=== PATIENT | male | born 1955 | race Caucasian/White ===

== ENCOUNTER 2024-12-30 09:43 | Emergency (ER) | payer MEDICARE, SELFPAY ==
[2024-12-30 09:46] VITALS: BP 152/105
--- NOTE | 2024-12-30 11:25 | EDRN ---
Dr. Barger in to see pt at this time.
--- NOTE | 2024-12-30 11:31 | ED.GENMED ---
History of Present Illness
General
Chief Complaint: Musculo-Skeletal Complaint
Source: patient
Exam Limitations: none
Time Seen by Provider: 12/30/24 11:15
Nursing documentation reviewed up to this point in time: agreed with
History of Present Illness
History of Present Illness:
Patient presents to ED secondary to worsening low back pain over the past 1 week. Denies direct trauma. Denies recent change in activities. Denies urinary or bowel incontinence. Denies weakness. Patient reports difficulty with ambulating,
secondary to pain. Patient states that he has had intermittent back pain in the past, but never this severe. Patient recently moved back [place] from [facility].
Review of Systems
Review of Systems
Allergies reviewed?: Yes
All Other Systems: ROS reviewed and negative except as documented in HPI and ROS
Constitutional: Reports no symptoms; Denies fever
Respiratory: Reports no symptoms
Cardiac: Reports no symptoms
ABD/GI: Reports no symptoms; Denies nausea or vomiting
: Reports no symptoms; Denies incontinence
Musculoskeletal: Reports back pain
Skin: Reports no symptoms
Neurological: Denies weakness
Phy Exam
Physical Exam
Physical Exam:
Physical Exam
General: mild painful distress, not acutely ill. afebrile
Head: nc/at. eomi
Neck: supple. no meningeal signs.
Abdomen: normal bowel sounds. not tender.
Back: no midline tenderness to palpation. mild left lower back tenderness to palpation at L5-S1 with positive straight leg raise test
Neuro: alert and oriented x 3. no focal neurological deficits
Skin: no rash
Psychiatric: well kept. interactive and cooperative
Extremities: no edema. no calf tenderness.
Course
Orders/Labs/Results
Orders:
Orders
12/30/24 11:30
Dexamethasone Sod Phosphate [Decadron] 10 mg IV NOW STA
Ketorolac [Toradol] 15 mg IV NOW STA
Oxycodone/Acetaminophen [Percocet 5/325] 1 tablet PO NOW STA
diazePAM [Valium Injection] 2 mg IV NOW STA
CR Lumbar Spine Comp Min 4 Vw* Urgent
Comment:
Reason For Exam: low back pain
Vital Signs
Initial and Last Documented VS:
Initial Vital Signs
Temp Pulse Resp BP Pulse Ox
98.2 F 99 19 152/105 98
12/30/24 09:46 12/30/24 09:46 12/30/24 09:46 12/30/24 09:46 12/30/24 09:46
Last Documented Vital Signs
Temp Pulse Resp BP Pulse Ox
98.2 F 92 16 115/84 98
12/30/24 09:46 12/30/24 13:05 12/30/24 13:05 12/30/24 13:05 12/30/24 13:05
MDM/Problems Addressed
MDM/Problems Addressed:
Patient reports moderate improvement in symptoms after treatment. Patient otherwise remains afebrile, hemodynamically stable, and neurologically intact. X-ray findings discussed with patient, including left renal cyst, which patient was aware of.
However, patient does state that he has not seen any kidney doctor for a long period of time. As such, as patient recently moved back to [facility] [place], patient will be referred to [facility] residency clinic for continued
evaluation as an outpatient, including potential MRI as outpatient, if symptoms persist. Patient without any symptoms concerning for cauda equina syndrome at this time. Patient provided with return precautions, i.e. fever/worsening
pain/weakness/incontinence. Patient expresses understanding at time of discharge.
*Pulse Oximetry
SaO2: 98
Oxygen Mode of Delivery: Room air
Patient hypoxic: no
*Critical Care Note
Total Time (30-74mins, 75-104mins- exclusive of procedures): Not Applicable
ED Attending Note
-
Portions of this chart may have been created with voice recognition software.� Occasional wrong word or��sound alike� substitutions may have occurred due to the inherent limitations of voice recognition software.
Discharge Plan
Departure
Patient Disposition: Home (Routine Discharge)
Date of Disposition: 12/30/24
Time of Disposition: 13:15
Patient with high blood pressure during this ER visit?: Yes
Condition: Good
Discharge Problem:
Back pain, Renal cyst
Instructions: Back Pain
Prescriptions:
New
methylprednisolone [Medrol (Robby)] 4 mg tablets,dose pack
4 mg PO DAILY Qty: 21 0RF
Rx Instructions:
As directed
naproxen 500 mg tablet
500 mg PO BID PRN (Reason: Pain) Qty: 20 0RF
Referrals:
[facility] [Outside]
UNKNOWN - PT DOES,NOT KNOW [Family Provider]
Activity Restrictions/Additional Instructions:
As discussed, please follow-up with referred [facility] residency clinic for continual evaluation and treatment. Please consider return to ED with worsening symptoms, i.e. fever/worsening pain/urinary or bowel incontinence/weakness. Your
prescriptions have been sent electronically to [facility] pharmacy in [place].
Interventions
Interventions:
*Risk Screen - Suicide Last Done: 12/30/24 09:46
*General Assessment Last Done: 12/30/24 09:46
*Neglect/Abuse Screening Last Done: 12/30/24 09:46
*ED- Fall Risk Assessment Last Done: 12/30/24 09:46
*ED COVID-19 Vaccine History Last Done: 12/30/24 09:46
*Nursing Disposition Last Done: 12/30/24 13:35
ED-Musculoskeletal Assessment Last Done: 12/30/24 11:48
Discharge Date and Time
Discharge Date/Time: 12/30/24 13:35
Print Language: ARMENIAN
[2024-12-30 11:46] VITALS: BMI 24.7
[2024-12-30] MEDS: VALIUM INJECTION 2 MG IV (11:55)
[2024-12-30] MEDS: TORADOL 15 MG IV (11:56)
[2024-12-30] MEDS: DECADRON 10 MG IV (11:57)
[2024-12-30] MEDS: PERCOCET 5/325 1 TABLET PO (11:57)
[2024-12-30 12:05] VITALS: BP 136/86
[2024-12-30 13:05] VITALS: BP 115/84
--- NOTE | 2024-12-30 13:06 | EDRN ---
Dr. Barger in room w/ pt at this time
== END 2024-12-30 13:35 | disposition home or self-care (01) ==
LOC: EMR 09:43
PROVIDERS: EMERGENCY PHYSICIAN Emergency Medicine
DX: M54.50 Low back pain, unspecified (principal); N28.1 Cyst of kidney, acquired; R03.0 Elevated blood-pressure reading, without diagnosis of hypertension
CPT/HCPCS: 99284; 96374; 96375 ×2; 72110

== ENCOUNTER 2025-01-01 15:59 | Inpatient (IN) | payer OTHER, SELFPAY ==
[2025-01-01] VITALS (7 sets, daily range): BP systolic 117–157; BP diastolic 72–99; BMI 24.2; BMI 25.0
--- NOTE | 2025-01-01 12:21 | ED.GENMED ---
History of Present Illness
General
Chief Complaint: Swelling
Time Seen by Provider: 01/01/25 12:10
Nursing documentation reviewed up to this point in time: agreed with
History of Present Illness
History of Present Illness:
69-year-old male presents to the ER for evaluation of bilateral lower extremity swelling. Patient reports that he was seen in our ER earlier this weekend for back pain. He had some left lower extremity swelling at that time. He was initiated on
steroids and NSAIDs for treatment of his back pain and states that his back pain has improved significantly but he has severe swelling to both of his legs now. He reports feeling of tension in both of his legs. He denies paresthesias. He denies
chest pain or shortness of breath. He does have a prior history of DVT many years ago and states that he takes daily aspirin. He has been eating and drinking without difficulty. He denies any urinary discomforts or change in urine output. He
denies fevers or chills.
Review of Systems
Review of Systems
Allergies reviewed?: Yes
Phy Exam
Physical Exam
Physical Exam:
Patient is awake, alert, appears in no acute distress, mucous membranes moist, conjunctiva pink, no increased work of breathing, GCS is 15, bilateral lower extremities reveal tense edema to the knees symmetric, left calf larger in diameter in
comparison to right calf, mild diffuse erythema without induration, no excessive warmth bilateral lower extremities, 2+ DP pulses present symmetric, toenails are poorly groomed, dorsum of the left foot with mild pitting edema, brisk cap refill
present bilateral lower extremities
Scores
Heart Failure Risk
Heart Failure Risk Score: Not Applicable
Course
Orders/Labs/Results
Orders:
Orders
01/01/25 12:19
Venous Doppler Lwr Ext Bilat [US Perip Venous LOWER Ext Ivan] Urgent
Comment:
Reason For Exam: edema
01/01/25 12:45
Basic Metabolic Panel Urgent
Complete Blood Count/No Diff Urgent
01/01/25 13:12
Urinalysis Urgent
Date Specimen was Collected: 01/01/25
Time Specimen was Collected: 12:23
Urine Microscopic Urgent
Date Specimen was Collected: 01/01/25
Time Specimen was Collected: :
01/01/25 14:14
PTT Urgent
Prothrombin Time Urgent
Heparin 5,600 units IV NOW STA
Pharmacy Request to Place See Dose Instructions PO NOW STA
Discontinue all Active Warfarin orders?: Yes
01/01/25 14:15
Heparin 53525 Units/250 ml 25,000 units in 250 ml IV PER PROTOCOL
Weight to be used for heparin protocol in kilograms (kg):: 70.1
Protocol:: DVT/PE
PTT Goal Range to be used:: PTT 73 to 111 seconds
Order type:: Initial
INITIAL Infusion Dose (UNITS/KG/hr) & then follow protocol:: 18 units/kg/hr
Infusion Dose in UNITS/hr & then follow protocol (UNITS/hr):: 1,300
INFUSION RATE in mL/hr & then follow protocol (mL/hr):: 13
For DVT/PE algorithm, re-bolus for low PTT?: Yes
PTT less than or equal to 64 seconds:: Re-bolus 80 units/kg (max 10,000units). Increase by 300 units/hr
(+ 3mL/hr)
PTT 64.1 to 72.9 seconds:: Re-bolus 40 units/kg (max 5,000 units). Increase by 100 units/hr
(+ 1mL/hr)
PTT 73 to 111 seconds:: Target Range. No change in rate.
PTT 111.1 to 130.9 seconds:: Decrease rate by 100 units/hr (- 1 mL/hr)
PTT 131 to 199.9 seconds:: HOLD for 1 hr. Then decrease by 200 units/hr (- 2mL/hr)
PTT greater than or equal to 200 seconds:: HOLD for 2 hrs & Notify Provider. Then decrease by 300 units/hr
(- 3mL/hr)
Lab follow-up:: Each change, PTT q6h until 2 consecutive are therapeutic. Then
PTT daily.
Nursing to Place Non Medication Order As Directed
Physician Order: PTT 6 hours after initial start of Heparin infusion
01/01/25 14:16
Bladder Scan- Treatment ONCE
0.9% Sodium Chloride 1000 ml [Nss] 1,000 ml IV BOLUS
Renal Only US [US Renal Only W/O Bladder] Urgent
Comment:
Reason For Exam: acute kidney injury
01/01/25 14:44
CT Abd/pelvis Wo Iv Cont Urgent
Comment: NO oral or IV contrast
Reason For Exam: nilay
Bladder Scan As Directed
Follow Bladder Retention/Intermittent Cath Algorithm?: Yes
PRN if no void in __ hours: 6
Frequency: Per Retention Algorithm
If Bladder Scan Result >: 400
then:: Straight cath
Straight Cath As Directed
Frequency: Per Retention Algorithm
Additional Instructions: straight cath as needed per acute urinary retention algorithm for 24 hrs
Additional Instructions: for bladder scan greater than 400 mL
01/01/25 15:[address] See Dose Instructions IV DIRECTED
Abnormal Lab Results
01/01/25 01/01/25
12:45 13:12
WBC 15.5 H 10^3/uL
(4.8-10.8)
Plt Count 105 L 10^3/uL
(130-400)
MPV 11.8 H fL
(7.4-10.4)
BUN 64 H mg/dl
(9-20)
Creatinine 2.7 H mg/dL
(0.7-1.3)
Urine Occult Blood 4+ A
(Negative)
Urine Albumin 2+ A
(Neg - Trace)
01/01/25 14:14
01/01/25 14:14
Creatinine significantly elevated at 2.7, no prior for comparison. Urinalysis with occult blood and albumin present. Nonspecific elevation of white blood count.
Vital Signs
Initial and Last Documented VS:
Initial Vital Signs
Pulse Resp BP Pulse Ox
94 18 135/93 100
01/01/25 11:26 01/01/25 11:26 01/01/25 11:26 01/01/25 11:26
Last Documented Vital Signs
Temp Pulse Resp BP Pulse Ox
97.7 F 94 18 135/99 97
01/01/25 11:29 01/01/25 11:26 01/01/25 11:26 01/01/25 14:00 01/01/25 14:09
MDM/Problems Addressed
Differential Diagnosis Includes:
Differential diagnosis to consider but not limited to DVT, cellulitis, adverse medication reaction, acute kidney injury along with other etiologies considered
Chronic conditions affecting care:
Prior DVT, current use of NSAIDs and steroids
*Radiology
Radiology exam reviewed: radiology read reviewed (Extensive bilateral DVT)
*Pulse Oximetry
SaO2: 100
Oxygen Mode of Delivery: Room air
Patient hypoxic: no
*Critical Care Note
Total Time (30-74mins, 75-104mins- exclusive of procedures): Not Applicable
Update Note
Update Note:
Once ultrasound result available, I discussed with patient and present at bedside need for admission for further evaluation and anticoagulation given extensive DVT and acute kidney injury. Patient has no prior personal history of renal
dysfunction. IV fluids are ordered. IV heparin is ordered. I reviewed full patient presentation with hospitalist accepts patient for admission
ED Attending Note
-
Portions of this chart may have been created with voice recognition software.� Occasional wrong word or��sound alike� substitutions may have occurred due to the inherent limitations of voice recognition software.
Discharge Plan
Departure
Patient Disposition: Admit
Date of Disposition: 01/01/25
Time of Disposition: 14:36
Presentation/result/management discussed w/ accepting MD/DO: Hospitalist
Discharge Problem:
DVT (deep venous thrombosis), Acute kidney injury
Prescriptions:
No Action
methylprednisolone [Medrol (Robby)] 4 mg tablets,dose pack
4 mg PO DAILY Qty: 21 0RF
Rx Instructions:
As directed
naproxen 500 mg tablet
500 mg PO BID PRN (Reason: Pain) Qty: 20 0RF
Referrals:
Yomaira Jasso DPM [Active, Podiatry] - Next open appointment
Activity Restrictions/Additional Instructions:
Do not take any further methylprednisolone
Interventions
Interventions:
*Risk Screen - Suicide Last Done: 01/01/25 11:27
*General Assessment Last Done: 01/01/25 11:27
*Neglect/Abuse Screening Last Done: 01/01/25 11:27
*ED- Fall Risk Assessment Last Done: 01/01/25 11:27
*ED COVID-19 Vaccine History Last Done: 01/01/25 11:27
ED- Cardiac Assessment Last Done: 01/01/25 14:09
ED- Pulmonary Assessment Last Done: 01/01/25 14:09
ED-Skin Assessment Last Done: 01/01/25 14:09
Discharge Date and Time
Print Language: ROMANIAN
[2025-01-01 13:04] LABS: Hematocrit 47.1 % (39.0-52.0); Hemoglobin 15.7 g/dL (13.0-18.0); Mean Corp Hgb Conc. 33.3 g/dL (33.0-37.0); Mean Corpuscular Volume 89.7 fL (80.0-94.0); Platelet Count 105 10^3/uL (130-400); Red Cell Dist. Width 13.5 % (11.5-14.5)
[2025-01-01 13:14] LABS: Blood Urea Nitrogen 64 mg/dl (9-20); Calcium 9.8 mg/dl (8.4-10.2); Carbon Dioxide 25 mmol/L (22-30); Chloride 103 mmol/L (98-107); Estimated Creatinine Clearance 24 ml/min; Glucose 92 mg/dl (70-99); Potassium 4.9 mmol/L (3.5-5.1); Sodium 136 mmol/L (135-145); eGFR 24.74
[2025-01-01 13:22] LABS: Urine Character Clear (Clear)
--- NOTE | 2025-01-01 14:39 | W.PN.UPDATE ---
Addendum entered and electronically signed by Shoaib Huerta MD 01/02/25 08:32:
Per Dr. Logan Ford urologist
- reported via [place] text patient has known about this or was followed in the past will need further eval with contrast-enhanced MRI once his true kidney function is established would be happy to set up for follow-up as available if needed for
inpatient care.
Addendum entered and electronically signed by Shoaib Huerta MD 01/01/25 20:14:
CT of the abdomen and pelvis with no contrast.
- Additional view of the left renal lesion:
a solid enhancing rounded component in the anterior nondependent portion of the mass.
This is seen best on image 36 series 201 and measures roughly 2.2 cm.
This makes this lesion concerning for malignancy until proven otherwise.
Mild diffuse bladder wall thickening. This can be seen with cystitis or bladder outlet obstruction.
Moderate prostate hypertrophy.
Several small gallstones.
Simple bilateral renal cysts.
Large complex left renal cyst
Diverticulosis. No acute diverticulitis.
Moderate fecal material throughout the colon.
IVC filter as described above.
Original Note:
Update Note
Progress Note Update
This note serves as an addendum to the H&P by pediatric genetic counselor Miguel Martinez
HPI
69M HX HTN , Renal cyst seen at ER :
- for evaluation of b/l Madi swelling
- he was seen at ER on 12/31 for LBP for 1week and b/l groin pain L > R and Lt leg swelling Dxed LBP and Renal cyst - DC'd on Medrol dose pack and Naproxen 500mg PO BID
- recently moved back [place] from [facility].
PHX
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 Post op complicated with PE and implanted IVCF. Subsequently had Lt CEA.
Report prior Tx with Blood thinner but uncertain APL vs OAC vs NOAC by spouse
Relevant VS
Temp Pulse Resp BP Pulse Ox
97.7 F 94 18 135/99 97
01/01/25 11:29 01/01/25 11:26 01/01/25 11:26 01/01/25 14:00 01/01/25 14:09
PE
Gen: mild painful distress, not acutely ill. afebrile
HEENT nc/at. eomi
Neck: supple. no meningeal signs.
Abdomen: normal bowel sounds. not tender.
Back: no midline tenderness to palpation. mild left lower back tenderness to palpation at L5-S1 POS SLR
Neuro: alert and oriented x 3. no focal neurological deficits
Skin: no rash
Psych: well kept. interactive and cooperative
Extremities: BL LE edema with mild erythema
Relevant Data
01/01/25 01/01/25
12:45 14:14
WBC 15.5 H
Hgb 15.7
Plt Count 105 L
INR Pending
Potassium 4.9
Chloride 103
Carbon Dioxide 25
BUN 64 H
Creatinine 2.7 H
eGFR 24.74
B/L Madi US
- Occlusive bilateral extensive DVT from the groin to and including the calves.
- Lx spine XR
- No evidence of acute compression fracture.
- Multilevel degenerative changes of the lumbar spine with moderate/severe degenerative changes of L4-L5 and L5-S1.
- 14.7 x 10.4 cm peripherally calcified lesion projecting over the left mid abdomen.
- IVC filter present.
NO PRIOR hospitalist admission:
ASSESSMENT & PLAN
Pending Rx reconciliation
Extensive occlusive BL LE DVT and acute kidney injury - presumed provoked due to IVCF
Known IVCF implant since 2010
- agree with Heparin gtt
- IR consult
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 Post op complicated with PE and implanted IVCF. Subsequently had Lt CEA.
Report prior Tx with Blood thinner but uncertain APL vs OAC vs NOAC by spouse
- to obtain records form [facility]
Thrombocytopenia - DDX consumptive due to extensive DVT
- no evidence of active bleeding
- Observe Platelet count
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
- No prior baseline Cr to determine the chronicity
- Bladder scan to eval for acute bladder retention
- Renal US
- IV NS 1 L bolus
- stop Naproxen
- Urine for eosinophilia
- Urinalysis
- Renal consult
14.7 x 10.4 cm peripherally calcified lesion projecting over the left mid abdomen
- CT AP wo contrast
DVT Px: Heparin gtt
Full code
IP TLM
--- NOTE | 2025-01-01 14:47 | HPS.HSE ---
Addendum entered and electronically signed by JOSETTE Hall 01/01/25 20:42:
Case discussed with Dr. Logan Ford who reported via [place] text patient has known about this or was followed in the past will need further eval with contrast-enhanced MRI once his true kidney function is established would be happy to set up for
follow-up as available if needed for inpatient care.
Original Note:
Family Physician
-
Family Physician: * NONE
Chief Complaint
-
Bilateral lower leg edema, groin pain
History of Present Illness
69-year-old male who complains of bilateral lower leg swelling and groin pain. He was seen in the ER 2 days ago complaining of 1 week of lower lumbar back pain with bilateral groin plain left worse than right and left leg swelling. The patient had
lumbar x-ray showing multilevel degenerative changes of the lumbar spine, 14.7 x 10.4 cm peripherally calcified lesion calcified lesion over the left mid abdomen with an IVC filter present.. He was placed on naproxen 500 mg twice daily for the last
2 days along with a Medrol Dosepak. He reports the swelling in bilateral legs became worse so he came back to the ER for evaluation. He reports taking total dose of 5 tablets of Aleve along with aspirin 81 mg daily he denies any other NSAIDs
herbal supplements, trauma, travel. He also complains of some decreased urination but denies dark urine or dysuria. He denies headache, sore throat, fever, chills, chest pain, palpitations, cough, shortness of breath, abdominal pain, nausea,
vomiting, diarrhea. He has past medical history of left carotid stenosis status post CEA 2013 with post hemorrhagic CVA then provoked PEs requiring IVC filter. He had subsequent right sided CEA performed also during 2013 at [facility]. Other past medical history includes hypertension, depression, renal cyst, active smoker
Medical History
Past Medical History
Past Medical History: Reports Other
Additional Past Medical History:
hypertension
depression
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
renal cysts
carotid stents
IVC filter 2013
Past Surgical History: Reports Other
Additional Past Surgical History:
IVC filter 2013 post bilateral PEs
Left carotid endarterectomy 2013, right carotid endarterectomy 2013
Appendectomy
Social History
Tobacco: Smoker (1 pack a day x 40 years)
Alcohol: None
Drug: None
Personal:
Living: With Family
Employment: Retired
Family History
Family History: Other (Father history of prostate cancer , sister age 3 from unknown type of brain tumor)
Allergies / Home Medications
Allergies reflects when Allergies were last updated in [employer].
Home Medications with original date entered in [employer]
Allergy/Medication List:
Allergies
Allergy/AdvReac Type Severity Reaction Status Date / Time
No Known Allergies Allergy Verified 12/30/24 09:55
Home Medications
methylprednisolone 4 mg tablets in a dose pack (Medrol (Robby)) 4 mg PO DAILY #21 ea 12/30/24
naproxen 500 mg tablet 500 mg PO BID PRN Pain #20 tabs 12/30/24
aspirin 81 mg tablet 81 mg PO DAILY 01/01/25
Review of Systems
-
History Source: Patient and Family ( at bedside)
A 12 point ROS was completed and negative except as noted: Yes
Constitutional: Denies Fever or Chills
EENT: Denies Sore Throat or Runny Nose
Respiratory: Denies Cough or Trouble Breathing
Cardiac: Denies Chest Pain, Diaphoresis, Palpitations or Syncope
Abdomen/GI: Denies Abdominal Pain, Nausea, Vomiting, Diarrhea, Constipated, Bloody Stools or Black Stools
: Reports Other (Slight decreased urine output); Denies Dysuria, Frequency, Flank Pain, Incontinence or Dark Urine
Musculoskeletal: Reports Edema (Bilateral leg edema from thighs to feet +1-2, lower lumbar back pain no CVA tenderness)
Skin: Denies Itching or Rash
Neurological: Denies Dizzy, Headache or Weakness
Endocrine: Reports No Symptoms
Hematologic/Lymphatic: Reports No Symptoms
Psych: Reports Calm
Physical Exam
Vital Signs
Vital Signs
Temp Pulse Resp BP Pulse Ox
97.7 F 94 18 135/99 97
01/01/25 11:29 01/01/25 11:26 01/01/25 11:26 01/01/25 14:00 01/01/25 14:09
Physical Exam
General: No Fever, Chills or Sweats
HEENT: NormoCephalic, Anicteric, Moist mucous membranes, PERRLA, [place] Conjunctivae and No Ptosis
Respiratory: Clear; No Wheezes, Rales or Rhonchi
Cardiac: S1/S2, Regular Rhythm and Peripheral Edema (Bilateral leg edema from thighs to feet +1-2); No Murmur, Rub or Gallop
Breast: Deferred by me
GI: Soft, Non Tender, Non Distended, Normal Bowel Sounds and No Hepatosplenomegaly
Rectal: Deferred by Provider
Genito-urinary: No costovertebral tender
Musculoskeletal: No Clubbing, No Cyanosis, Edema, Left Lower Extremity (Bilateral leg edema from thighs to feet +1-2) and Edema, Right Lower Extremity (Bilateral leg edema from thighs to feet +1-2); No Edema, Left Upper Extremity or Edema, Right
Upper Extremity
Skin: Warm and Dry; No Rash
Neuro: AO x 3, No Motor Deficits, Nonfocal/grossly intact, Cranial Nerves Intact and No Sensory Deficits; No Slurred Speech, Facial Droop, Tremors or Sedated
Psych: Calm
Laboratory Results
-
01/01/25 14:14
01/01/25 14:14
Laboratory Results
Total Bilirubin Cancelled 01/01/25 14:14
AST Cancelled 01/01/25 14:14
ALT Cancelled 01/01/25 14:14
Alkaline Phosphatase Cancelled 01/01/25 14:14
Impression/Plan
-
Impression/plan:
Admit to tele
#Extensive bilateral lower leg DVTs unclear if provoked by IVC filter x 11 years
History of IVC filter placed 2013 [facility]
-Consult IR
- IV heparin drip
Bilateral lower venous Doppler:
Occlusive bilateral extensive DVT from the groin to and including bilat claves
#THANG unclear if obstructive versus NSAID induced
# history renal cyst
Creat 2.7/bun 64
Renal ultrasound
-Bladder scans
-Noncontrast CT abdomen pelvis
-Urinalysis negative except for plus for occult blood
- Hold naproxen, NSAIDs, aspirin
- Consult Nephrology
- Check urine eosinophils
#Acute leukocytosis reactive in setting of bilateral DVTs
WBC 15.5, afebrile
#Acute thrombocytopenia
Plt 105
#Active smoker
1 pack a day x 40 years
Cessation advised
21 mg nicotine patch
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
He had subsequent right sided CEA performed also during 2013 at [facility]
#Hypertension hx
- Per patient used to be on medication is no longer on
- BP is stable
#Depression
-No reported meds
Full code
[2025-01-01] MEDS: NSS 1000 IV (15:07)
[2025-01-01 15:15] LABS: INR 1.03; PT 13.8 Sec (11.4-14.6)
[2025-01-01 15:16] LABS: APTT 42.0 Sec (23.4-35.0)
[2025-01-01] MEDS: HEPARIN 25000 UNITS/250 ML IV (15:25)
[2025-01-01] MEDS: HEPARIN 5600 UNITS IV (15:25)
[2025-01-01 15:57] LABS: Magnesium 2.5 mg/dl (1.6-2.3)
[2025-01-01] MEDS: NICODERM TRANSDERMAL 21 MG TRANSDERM (18:35)
[2025-01-01] MEDS: TYLENOL 650 MG PO (18:38)
--- NOTE | 2025-01-01 20:39 | PTCARENOTE ---
Pt was complaining of 4/10 pain to B/L LE per DVT diagnosis. Due to being on a Heparin drip only able to take tylenol. TT House provider for extra dose of tylenol and melatonin. See MAR.
[2025-01-01] MEDS: TYLENOL 325 MG PO (21:04)
[2025-01-01] MEDS: MELATONIN 5 MG PO (21:05)
[2025-01-01 22:12] LABS: APTT 161.7 Sec (23.4-35.0)
--- NOTE | 2025-01-01 22:20 | PTCARENOTE ---
PTT came back at 161.7. Per protocol Heparin drip stopped for 1 hour.
--- NOTE | 2025-01-01 23:20 | PTCARENOTE ---
Per protocol, restarted heparin drip. Decreased rate by 200 Units.
[2025-01-02 03:31] VITALS: BP 123/84
[2025-01-02 06:00] VITALS: BMI 25.3
[2025-01-02 06:27] LABS: APTT 104.7 Sec (23.4-35.0)
[2025-01-02 06:35] LABS: Hematocrit 43.0 % (39.0-52.0); Hemoglobin 14.1 g/dL (13.0-18.0); Mean Corp Hgb Conc. 32.8 g/dL (33.0-37.0); Mean Corpuscular Volume 90.7 fL (80.0-94.0); Nucleated Red Blood Cells % 0 % (-); Platelet Count 91 10^3/uL (130-400); Red Cell Dist. Width 13.5 % (11.5-14.5)
[2025-01-02 07:00] VITALS: BP 104/60
[2025-01-02 07:08] LABS: ALT (SGPT) 13 U/L (0-50); AST (SGOT) 18 U/L (17-59); Albumin 3.6 g/dl (3.5-5.0); Alkaline Phosphatase 91 U/L (38-126); Blood Urea Nitrogen 65 mg/dl (9-20); Calcium 8.8 mg/dl (8.4-10.2); Carbon Dioxide 24 mmol/L (22-30); Chloride 108 mmol/L (98-107); Estimated Creatinine Clearance 25 ml/min; Glucose 90 mg/dl (70-99); HDL Cholesterol 40 mg/dl; LDL Cholesterol, Calculated 128 mg/dl; Potassium 4.4 mmol/L (3.5-5.1); Sodium 137 mmol/L (135-145); Total Protein 6.1 g/dl (6.3-8.2); Very Low Density Lipoprotein 57 mg/dl (0-30); eGFR 25.88
[2025-01-02 07:39] LABS: Hepatitis C Antibody Negative (Negative)
[2025-01-02] MEDS: NICODERM TRANSDERMAL 21 MG TRANSDERM (08:41)
--- NOTE | 2025-01-02 09:14 | W.PN.HOSP.TC ---
Today's Communication/Plan
-
Hematology consult
MRI
f/w nephrology and IR
Will also d/w vascular
Assessment / Plan
Assessment / Plan
Physical Exam
General: Not in distress
HEENT: Normocephalic, Anicteric, Moist mucous membranes, PERRLA, [place] Conjunctivae and No Ptosis
Respiratory: Clear; No Wheezes, Rales or Rhonchi
Cardiac: S1/S2,
GI: Soft, Non Tender, Non Distended, Normal Bowel Sounds
Genito-urinary: No costovertebral tender
Musculoskeletal: No Clubbing, No Cyanosis. Mild edema in both legs.
Skin: Warm and Dry; No Rash
Neuro: AO x 3, No Motor Deficits, Nonfocal/grossly intact, Cranial Nerves Intact and No Sensory Deficits; No Slurred Speech, Facial Droop, Tremors or Sedated
Psych: Calm
A/P:
#Extensive bilateral lower leg DVTs
History of IVC filter placed 2014 [facility]
- IV heparin drip for now until
Monitor PTT
Bilateral lower venous Doppler:
Occlusive bilateral extensive DVT from the groin to and including bilat claves
Consult hematology
#THANG unclear if obstructive versus NSAID induced
Possible underlying CKD, unknown stage
# history renal cyst
Creat 2.7/bun 64
We do not know baseline. Per patient: No PCP. Patient lived in [facility] [place] for years and moved back 8 months ago.
-Noncontrast CT abdomen pelvis
-Urinalysis negative except for plus for occult blood
- Stop naproxen, NSAIDs, aspirin
Appreciate nephrology help
# Left renal complex cyst. I spoke with Dr. Ford, seems encapsulated, likely chronic, will need OP follow -- up and management.
Order MRI with and without contrast
#Acute leukocytosis reactive in setting of bilateral DVTs
Resolved.
#Acute thrombocytopenia
Plt 105
#Active smoker
1 pack a day x 40 years
Cessation advised
21 mg nicotine patch
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
He had subsequent right sided CEA performed also during 2013 at [facility]
He reports compliance to daily aspirin
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
#Hypertension hx
- Per patient used to be on medication is no longer on
- BP is stable
#Depression
Mood is pleasant
Total time spent to see the patient, examine the patient, review data lab result, discuss treatment plan with patient, nursing staff around 55 minutes
Anticipated Discharge: > 48 hours
Subjective/Interval History
-
Date of Service: January 02, 2025
No chest pain
No sob
No fevers
Objective Data
-
Labs:
Laboratory Results
01/01/25 01/02/25 01/02/25
21:25 06:01 12:32
WBC 10.1
Hgb 14.1
Hct 43.0
Plt Count 91 L
APTT 161.7 H* 104.7 H Pending
Sodium 137
Potassium 4.4
Chloride 108 H
Carbon Dioxide 24
BUN 65 H
Creatinine 2.6 H
Glucose 90
Calcium 8.8
Total Bilirubin 0.5
AST 18
ALT 13
Alkaline Phosphatase 91
Vital Signs:
Vital Signs
Temp Pulse Resp BP Pulse Ox
98.2 F 69 18 104/60 96
01/02/25 07:00 01/02/25 07:00 01/02/25 07:00 01/02/25 07:00 01/02/25 07:00
I&O
01/01/25 01/02/25 01/03/25
06:59 06:59 06:59
Intake Total 480 / 480
Output Total 500 / 500
Balance -20 / -20
--- NOTE | 2025-01-02 09:48 | CM ---
Patient seen at bedside
IA completed
Dx: THANG, Bilat leg extensive DVT's, active smoker
PMH: left carotid stenosis status post CEA 2013 with post hemorrhagic CVA then provoked PEs requiring IVC filter. He had subsequent right sided CEA performed also during 2013 at [facility]. Other past medical history includes
hypertension, depression, renal cyst
Lives with and son in a split level home, no steps to enter, 6 steps to bed/bath
PLOF: independent
DME: [facility]
Denies VN/Has been to [facility] in past
PCP: States does not have PCP, Information given [facility]
Pharmacy: [facility]
PLAN: home, anticipate no needs when stable
[2025-01-02 11:00] VITALS: BP 130/83
--- NOTE | 2025-01-02 11:39 | W.CON.NEPH ---
Consultation
-
Date/Time Consultation Requested: 01/01/25 1519
Date/Time Consultation Performed: 01/01/25 1130
Requesting Provider: Shoaib Herron
Performing Provider: Raya Marie
Reason for Consultation: THANG
Medical History
-
Chief Complaint: Bilateral lower leg edema, groin pain
History of Present Illness:
69-year-old male who Has history of K stone, HTN not on meds, provoked DVTs, PE status post IVC filter in 2013 during admit for hemorrhagic CVA s/p CEA, who presented with complains of bilateral lower leg swelling and groin pain. He was seen in the
ER 2 days ago complaining of 1 week of lower lumbar back pain with bilateral groin plain left worse than right and left leg swelling. The patient had lumbar x-ray showing multilevel degenerative changes of the lumbar spine, 14.7 x 10.4 cm
peripherally calcified lesion calcified lesion over the left mid abdomen with an IVC filter present.. He was placed on naproxen 500 mg twice daily for the last 2 days along with a Medrol Dosepak. He reports the swelling in bilateral legs became
worse so he came back to the ER for evaluation on 01/01. He noted to have extensive bilateral lower extremity DVT occlusive from groin and including bilateral calves. His creatinine noted to be 2.7, BUN 64 and routine lab work. CT abdomen and pelvis
without contrast shows kidney lesions which patient reports has been aware of having a complex cyst and was evaluated by urology at [facility] in 2013 and felt was not malignant. Patient did not follow any doctors since this hospitalization reports
[place] He denies use of herbal supplements, trauma, travel, regular use of NSAIDs. he does remember of having mild kidney issue before but does not recall any creatinine values, no labs were done in last 11 years.
He complains of some decreased urination and passing dark urine with out dysuria or hematuria. He denies headache, sore throat, fever, chills, chest pain, cough, shortness of breath, abdominal pain, nausea, vomiting, diarrhea.
Past Medical History
hypertension
depression
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
renal cysts
carotid stents
IVC filter 2013
Past Surgical History: Other (IVC filter 2013 post bilateral PEs Left carotid endarterectomy 2013, right carotid endarterectomy 2013 Appendectomy)
Social History
Tobacco: Smoker (1 PPD -40yrs)
Alcohol: None
Drug: None
Personal:
Living: With Family
Employment: Retired
Family History
no CKD
Family History: Not Pertinent
Allergies / Home Medications
Allergy/AdvReac Type Severity Reaction Status Date / Time
No Known Allergies Allergy Verified 12/30/24 09:55
�Medication �Instructions �Recorded �Confirmed �Type
naproxen 500 mg tablet 500 mg PO BID PRN Pain #20 tabs 12/30/24 01/01/25 Rx
aspirin 81 mg tablet 81 mg PO DAILY Blood Clot 01/01/25 01/01/25 History
Prevention/Tx
methylprednisolone 4 mg tablets in 4 mg PO DAILY Anti-Inflammatory 01/02/25 01/01/25 History
a dose pack (Medrol (Robby))
Review of Systems
-
All other systems: Negative unless noted
Physical Exam
Vital Signs
Vital Signs
Temp Pulse Resp BP Pulse Ox
98.2 F 78 18 130/83 99
01/02/25 11:00 01/02/25 11:00 01/02/25 11:00 01/02/25 11:00 01/02/25 11:00
Lab Results
WBC 10.1 10^3/uL (4.8-10.8) 01/02/25 06:01
RBC 4.74 10^6/uL (4.70-6.10) 01/02/25 06:01
Hgb 14.1 g/dL (13.0-18.0) 01/02/25 06:01
Hct 43.0 % (39.0-52.0) 01/02/25 06:01
Plt Count 91 10^3/uL (130-400) L 01/02/25 06:01
Sodium 137 mmol/L (135-145) 01/02/25 06:01
Potassium 4.4 mmol/L (3.5-5.1) 01/02/25 06:01
Chloride 108 mmol/L (98-107) H 01/02/25 06:01
Carbon Dioxide 24 mmol/L (22-30) 01/02/25 06:01
BUN 65 mg/dl (9-20) H 01/02/25 06:01
Creatinine 2.6 mg/dL (0.7-1.3) H 01/02/25 06:01
eGFR 25.88 01/02/25 06:01
Glucose 90 mg/dl (70-99) 01/02/25 06:01
Calcium 8.8 mg/dl (8.4-10.2) 01/02/25 06:01
Phosphorus 5.2 mg/dl (2.5-4.5) H 01/01/25 12:45
Albumin 3.6 g/dl (3.5-5.0) 01/02/25 06:01
Physical Exam
General: Awake, Alert, Oriented, AOx3 and No Distress
HEENT: EOMI, Anicteric, Dentition Intact, Neck Supple and No JVD
Cardiac: S1/S2 and Regular Rate/Rhythm
Breast: Deferred by me
Abdomen: Soft, Nontender and Nondistended
Musculoskeletal: No Cyanosis and No Edema
Skin: No Rash
Neuro: Nonfocal/Grossly Intact
Psych: Mood/afflect pleasant, Insight/judgement good and Appropriate
Assessment/Plan
-
IMP:
Extensive bilateral lower leg DVTs unclear if provoked by IVC filter x 11 years-2013
History of IVC filter placed 2013 [facility]
THANG vs CKD
history left renal cyst/mass
leukocytosis
thrombocytopenia
Active smoker
Left carotid stenosis status post CEA 2013 with post hemorrhagic CVA then provoked PEs requiring IVC filter.
He had subsequent right sided CEA performed also during 2013 at [facility]
Hypertension hx-not on meds
Depression
h/o K stone
Plan:
A/w bilat leg swelling and pain-noted extensive bilat DVT
known h/o DVT, PE s/p IVCF in 2013, no medical care since then
cr high at 2.7 on admit and no change at 2.6 this am
suspect he has CKD based on history , was told not to take NSAIDs due to kidneys
UA with microhematuria and 2+alb, will send serologies
CT and renal US noted with asymmetric kidney mostly with cyst on left and no hydro
follow bladder scan too
given low plt -check manual diff on CBC
avoid nephrotoxins including NSAIDs
eventual MRI with contrast for kidney mass/cyst
try gentle IVF and follow labs
BP stable with out meds
AC per primary on heparin gtt
d/w pt in detail
[2025-01-02 12:51] LABS: APTT 83.3 Sec (23.4-35.0)
--- NOTE | 2025-01-02 13:26 | CON.ONC ---
Consultation
-
Date Consultation Requested: 01/02/25
Date Consultation Performed: 01/02/25
Requesting Provider: Karolina Portillo MD
Performing Provider: Dr. Calderon
Reason for Consultation: Extensive DVTs and Renal Mass
Impression
Impression
This is a 69 y/o male who presented to the hospital on 01/01/2025 with bilateral lower extremity swelling found to have Extensive Bilateral Lower Leg DVTs and a Left-sided Renal Mass
Plan
Plan
Extensive Bilateral Lower Leg DVTs
-History of IVC filter placed in 2013 at [facility]
-Peripheral vascular ultrasound (01/01/2025) showed occlusive bilateral extensive DVT from the groin to and including the calves.
-Patient currently on IV Heparin drip
-Continue to monitor PTT
-IR has been consulted by the primary team
-Consulted Vascular Surgery today
-Will monitor
Left Renal Mass
-First noted on X-ray from 12/30/2024. CT Abdomen/Pelvis showed a rim calcified left renal mass measuring 9.6cm with a density of 17 [place]. Additional view of the left renal lesion showed a solid unchanging rounded component in the anterior
nondependent portion of the mass, measuring approximately 2.2cm.
-No prior imaging studies available
-Concern for malignancy. Recommend MRI evaluation for further imaging provided he is able to have contrast given his creatinine (Will need to follow renal function), and that his filters are MRI-safe.
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
-Will monitor
Patient History
History of Present Illness
This is a 69 y/o male who presented to the hospital on 01/01/2025. He states that on Wednesday, 12/30, he was experiencing some back pain and went to see his outpatient doctor. He was prescribed Naproxen and Medrol Dose Pack. The next day, however, he
began to experience bilateral lower extremity swelling along with aching pain in his thighs, and a feeling of leg heaviness. His daughter, who is a nurse, requested he go to the hospital immediately.
On chart review, a Lumbar Spine X-ray from 12/30/2024 shows a 14.7 x 10.4cm peripherally calcified lesion projecting over the left abdomen.
In the ED, a peripheral vascular ultrasound showed occlusive bilateral extensive DVT from the groin to and including the calves. CT Abdomen/Pelvis showed a rim calcified left renal mass measuring 9.6cm with a density of 17 [place]. Additional
view of the left renal lesion showed a solid unchanging rounded component in the anterior nondependent portion of the mass, measuring approximately 2.2cm. Renal ultrasound confirmed a large complex left renal cyst, malignant until proven otherwise.
MRI Evaluation was recommended by both US and CT.
Today, he is doing well. He states that his leg swelling is around the same as when it first appeared on 12/31. He does not have any chest pain, shortness of breath, fevers, chills, abdominal pain. His back pain is improved from 12/30. He does not
have not numbness or tingling. He does smoke cigarettes, but has been trying to cut back recently due to concerns by his daughter. He states that he �does not take good care of himself� in general, and does not frequently follow up with a doctor
outside the hospital.
Past-Medical/Surgical History
Essential Hypertension
CVA with hemorrhagic conversion status post Carotid Endarterectomy (2013)
Renal Cyst
Carotid Artery Stent Placement
History of Bilateral PE and subsequent IVC Filter Placement (2013)
Appendectomy
Patient Medication
�Medication �Instructions �Recorded �Confirmed �Last Taken �Type
naproxen 500 mg tablet 500 mg PO BID PRN Pain #20 tabs 12/30/24 01/01/25 01/01/25 Rx
aspirin 81 mg tablet 81 mg PO DAILY Blood Clot 01/01/25 01/01/25 12/31/24 History
Prevention/Tx
methylprednisolone 4 mg tablets in 4 mg PO DAILY Anti-Inflammatory 01/02/25 01/01/25 12/31/24 History
a dose pack (Medrol (Robby))
Active Medications
Generic Name Dose Route Start Last Admin
Trade Name Freq PRN Reason Stop Dose Admin
Acetaminophen 650 mg 01/01/25 17:13 01/01/25 18:38
Acetaminophen 325 Mg Tablet PO 01/29/25 17:12 650 mg
Q4HPRN PRN Administration
mild pain/ELDER/temp> 100.4F
Heparin Sodium 5,600 units 01/01/25 15:41
Heparin 80 Units/Kg Iv Rebolus IV 01/29/25 15:40
PRN PRN
PTT < OR = 64 seconds
Heparin Sodium 2,800 units 01/01/25 15:42
Heparin 40 Units/Kg Iv Rebolus IV 01/29/25 15:41
PRN PRN
PTT = 64.1 to 72.9 seconds
Heparin Sodium 25,000 units in 250 mls @ 0 mls/hr 01/01/25 14:15 01/01/25 15:25
Heparin 21702 Units/250 Ml IV 250 mls
PER PROTOCOL ARABELLA Administration
Protocol
Per Protocol
Nicotine 21 mg 01/01/25 17:00 01/02/25 08:41
Nicotine 21 Mg Patch TRANSDERM 01/29/25 16:59 21 mg
DAILY ARABELLA Administration
Sodium Chloride 0 flush 01/01/25 21:00
Sodium Chloride 0.9% (Flush) Syringe IV 01/29/25 20:59
PER PROTOCOL ARABELLA
Review of Systems
-
History Source: Patient
Constitutional: Denies Fever, Fatigue, Night Sweats, Chills or Weakness
Respiratory: Denies Cough or Trouble Breathing
Cardiac: Denies Chest Pain
GI: Denies Abdominal Pain, Nausea, Vomiting, Diarrhea or Constipated
Musculoskeletal: Reports Muscle Pain, Edema and Muscle Weakness
Neuro: Denies Dizzy or Headache
Physical Exam
-
General: Well Developed, Well Nourished, No Apparent Distress and Comfortable
Cardiology: Normal Sinus Rhythm, S1 and S2
Pulmonary: Clear
GI: Soft and Normal Bowel Sounds
Musculoskeletal: No Clubbing, No Cyanosis, Edema, Right Lower Extrem and Edema, Left Lower Extrem
Skin: Warm and Dry
Psych: Calm
Labs
Lab Results
WBC 10.1 10^3/uL (4.8-10.8) 01/02/25 06:01
RBC 4.74 10^6/uL (4.70-6.10) 01/02/25 06:
Hgb 14.1 g/dL (13.0-18.0) 01/02/25 06:
Hct 43.0 % (39.0-52.0) 01/02/25 06:
MCV 90.7 fL (80.0-94.0) 01/02/25 06:
MCH 29.7 pg (27.0-31.0) 01/02/25 06:01
MCHC 32.8 g/dL (33.0-37.0) L 01/02/25 06:01
RDW 13.5 % (11.5-14.5) 01/02/25 06:01
Plt Count 91 10^3/uL (130-400) L 01/02/25 06:01
MPV 11.9 fL (7.4-10.4) H 01/02/25 06:01
Abs Immat Gran (auto) 0.1 10^3/uL (0-0.05) H 01/02/25 06:01
Absolute Neuts (auto) 6.4 10^3/uL (1.4-6.5) 01/02/25 06:01
Absolute Lymphs (auto) 2.3 10^3/uL (1.2-3.4) 01/02/25 06:01
Absolute Monos (auto) 0.9 10^3/uL (0.1-0.6) H 01/02/25 06:01
Absolute Eos (auto) 0.3 10^3/uL (0-0.7) 01/02/25 06:01
Absolute Basos (auto) 0.1 10^3/uL (0-0.2) 01/02/25 06:01
Immature Gran % 1.4 % (0-0.5) H 01/02/25 06:01
Neutrophils % 63.6 % (42.2-75.2) 01/02/25 06:01
Lymphocytes % 22.5 % (20.5-51.1) 01/02/25 06:01
Monocytes % 8.9 % (1.7-9.3) 01/02/25 06:01
Eosinophils % 3.0 % (0-6) 01/02/25 06:01
Basophils % 0.6 % (0-2) 01/02/25 06:01
Creatinine 2.6 mg/dL (0.7-1.3) H 01/02/25 06:01
Vital Signs
Vital Signs
Temp Pulse Resp BP Pulse Ox
98.2 F 78 18 130/83 99
01/02/25 11:00 01/02/25 11:00 01/02/25 11:00 01/02/25 11:00 01/02/25 11:00
[2025-01-02 14:48] VITALS: BP 131/80
--- NOTE | 2025-01-02 16:23 | CON.VAS ---
Addendum entered and electronically signed by Sd Chao III, MD 01/02/25 20:03:
This patient was seen and examined in collaboration with JOSETTE Lovett. I agree with the history and physical exam as well as the assessment and plan. I have the following additions:
Consulted for bilateral lower extremity DVTs
History of hemorrhagic stroke
History of lower extremity DVT and PE
IVC filter placed at [facility] in 2013
He was never treated with systemic anticoagulation by his report
Known kidney mass that he never had further evaluated
He is an active smoker
On physical exam he is nontoxic-appearing
Bilateral lower extremity edema which is not significant
Thigh and calf compartments are soft and nontender
Feet are warm bilaterally
Ideally we would obtain CT venogram of the abdomen and pelvis to more fully evaluate his iliac veins and vena cava, however he currently has an elevated creatinine at 2.6 with no known baseline. I suspect he has thrombosed to the level of the IVC
filter. Another possibility is that he may have renal cell carcinoma with renal vein/IVC extension. All of this will need to be further evaluated. For now we are recommending continued anticoagulation with heparin. MRI pending. Gentle Darnell wrap
compression to LE's bilaterally. Leg elevation bilaterally.
Signed:
Sd Chao III, MD
Vascular Surgery
[facility]
Original Note:
Consultation
Consultation Request
Date/Time Consultation Performed: 01/02/2025 4:23 PM
Performing Provider: Jeremie
Reason for Consultation: Bilateral lower extremity DVT
Medical History
-
Chief Complaint: Bilateral lower extremity heaviness
History of Present Illness:
69-year-old male with past medical history significant for hemorrhagic CVA, hypertension, renal cyst, carotid artery stent, bilateral PE and IVC filter placed in 2013 (never on anticoagulation) admitted through the emergency room yesterday with back
pain, lower extremity swelling and heaviness. Ultrasound in the emergency room showed extensive occlusive bilateral DVT. Renal ultrasound suggests potentially malignant large complex left renal cyst.
Vascular consult for DVT. Patient seen at bedside this afternoon with Dr. Chao. Patient offers no complaints at this time. He states his swelling is about the same in his legs. He can move around easily but feels 'heaviness.' He is a current
active smoker. Patient admits to not ' taking very good care of himself.' He admits to not seeing doctors outside the hospital. He has recently moved back from [facility] after being there for 3 years. He states he was ' in great shape' ' had no
problems' when he was there. Patient states that he was aware of the renal cyst for the last 11 years but has not had any follow-up.
Past Medical History
Past Medical History: Other (Hypertension, hemorrhagic CVA, renal cysts, carotid artery stent placement, bilateral PE and IVC filter 2014, appendectomy)
Social History
Tobacco: Smoker
Alcohol: None
Drug: None
Personal:
Living: With Family
Employment: Retired
Family History
Family History: Cancer
Allergies / Home Medications
Allergy/AdvReac Type Severity Reaction Status Date / Time
No Known Allergies Allergy Verified 12/30/24 09:55
�Medication �Instructions �Recorded �Confirmed �Type
naproxen 500 mg tablet 500 mg PO BID PRN Pain #20 tabs 12/30/24 01/01/25 Rx
aspirin 81 mg tablet 81 mg PO DAILY Blood Clot 01/01/25 01/01/25 History
Prevention/Tx
methylprednisolone 4 mg tablets in 4 mg PO DAILY Anti-Inflammatory 01/02/25 01/01/25 History
a dose pack (Medrol (Robby))
Review of Systems
-
History Source: Patient
All other systems: Negative unless noted
Constitutional: Reports No Symptoms
EENT: Reports No Symptoms
Respiratory: Reports No Symptoms
Cardiac: Reports No Symptoms
Vascular: Denies Leg Pain / Claudication
Abdomen/GI: Reports No Symptoms
: Reports No Symptoms
Musculoskeletal: Reports Edema (Mild lower extremity edema bilaterally)
Skin: Reports No Symptoms
Neurological: Reports No Symptoms
Physical Exam
Vital Signs
Temp Pulse Resp BP Pulse Ox
97.8 F 77 18 131/80 99
01/02/25 14:48 01/02/25 14:48 01/02/25 14:48 01/02/25 14:48 01/02/25 14:48
Lab Results
01/02/25 06:01
01/02/25 06:01
Physical Exam
General: No Apparent Distress
HEENT: Normocephalic and Atraumatic
Respiratory: Non Labored Respirations
Cardiac: Negative JVD
GI: Soft and Non Tender
Musculoskeletal: No Clubbing, No Cyanosis and Edema (+1 bilateral lower extremities)
Skin: Warm
Neuro: Awake, Alert and Oriented
Psych: Calm
Assessment / Plan
-
69-year-old male with past medical history significant for hemorrhagic stroke, bilateral PE, IVC filter
Here for extensive occlusive bilateral DVT
Creatinine 2.6 with no known baseline
Complex renal mass
Plan:
Ideally would like CT venogram to show extent of thrombus but creatinine 2.6 with no known baseline, also patient is not a candidate for lysis given hemorrhagic stroke history
Continue heparin drip
MRI pending for cancer workup
Will follow along
Data Reviewed
-
Ultrasound: Discussed with Patient
Labs: Labs Reviewed by me
[2025-01-02 18:05] LABS: Absolute Neutrophils -Man Diff 6.7 10^3/uL (1.4-6.5)
[2025-01-02 18:06] LABS: Normal RBC Morphology Yes; Platelets Checked Yes; Total Cells Counted 100
[2025-01-02] MEDS: TYLENOL 650 MG PO (18:15)
[2025-01-02 19:00] VITALS: BP 126/80
[2025-01-02] MEDS: BENADRYL 25 MG PO (20:10)
[2025-01-02 22:38] LABS: Body Fluid for Eosinophils No Eosinophils seen
[2025-01-02 23:00] VITALS: BP 132/73
[2025-01-03 03:00] VITALS: BP 130/63
[2025-01-03 05:53] VITALS: BMI 25.4
[2025-01-03 07:41] LABS: Hematocrit 43.3 % (39.0-52.0); Hemoglobin 14.1 g/dL (13.0-18.0); Mean Corp Hgb Conc. 32.6 g/dL (33.0-37.0); Mean Corpuscular Volume 91.4 fL (80.0-94.0); Nucleated Red Blood Cells % 0 % (-); Platelet Count 99 10^3/uL (130-400); Red Cell Dist. Width 13.5 % (11.5-14.5)
[2025-01-03 07:47] VITALS: BP 127/64
[2025-01-03 08:13] LABS: ALT (SGPT) 13 U/L (0-50); AST (SGOT) 17 U/L (17-59); Albumin 3.7 g/dl (3.5-5.0); Alkaline Phosphatase 90 U/L (38-126); Blood Urea Nitrogen 60 mg/dl (9-20); Calcium 9.0 mg/dl (8.4-10.2); Carbon Dioxide 23 mmol/L (22-30); Chloride 109 mmol/L (98-107); Estimated Creatinine Clearance 27 ml/min; Glucose 88 mg/dl (70-99); Potassium 4.4 mmol/L (3.5-5.1); Sodium 137 mmol/L (135-145); Total Protein 6.2 g/dl (6.3-8.2); eGFR 28.49
[2025-01-03 08:19] LABS: APTT 68.3 Sec (23.4-35.0)
--- NOTE | 2025-01-03 08:26 | CONS.URO ---
Consultation
-
Date/Time Consultation Performed: 01/02 08
Performing Provider: Peffer
Reason for Consultation: Renal mass
Medical History
History of Present Illness
69M without past urologic history
Known left renal cyst or abnormal renal lesion that had been followed by a urologist in the 1999s
Patient has not had this followed in recent years
He was admitted for back and b/l LE pain and on admission found to have extensive b/l DVTs
He has an IVC filter that was present since around [address] without contrast also showed a large rim calcified complex cystic mass of the L kidney with an approx 2cm solid/dense component
Past Medical History
Past Medical History: Other (hypertension depression CVA hemorrhagic conversion post left carotid endarterectomy 2013 renal cysts carotid stents IVC filter 2013)
Past Surgical History: Other (IVC filter 2013 post bilateral PEs Left carotid endarterectomy 2013, right carotid endarterectomy 2013 Appendectomy)
Social History
Tobacco: Smoker
Alcohol: None
Drug: None
Family History
Family History: Reviewed & Not Pertinent
Allergies/Home Medications
Allergies
Allergy/AdvReac Type Severity Reaction Status Date / Time
No Known Allergies Allergy Verified 12/30/24 09:55
Home Medications
�Medication �Instructions �Recorded �Confirmed �Type
naproxen 500 mg tablet 500 mg PO BID PRN Pain #20 tabs 12/30/24 01/01/25 Rx
aspirin 81 mg tablet 81 mg PO DAILY Blood Clot 01/01/25 01/01/25 History
Prevention/Tx
methylprednisolone 4 mg tablets in 4 mg PO DAILY Anti-Inflammatory 01/02/25 01/01/25 History
a dose pack (Medrol (Robby))
Physical Exam
Vital Signs
Vital Signs
Temp Pulse Resp BP Pulse Ox
97.9 F 74 14 127/64 99
01/03/25 07:47 01/03/25 07:47 01/03/25 07:47 01/03/25 07:47 01/03/25 07:47
Lab / Testing Results
Laboratory Results
01/03/25 06:53
01/03/25 06:53
Physical Exam
General: Well Developed, Well Nourished and No Apparent Distress
GI: Soft and Non Tender
Genito-urinary: No Costovertebral Tend
Neuro: AO x 3
Psych: Calm and Intact Judgement
Assessment / Plan
-
69M admitted with b/l LE swelling found to have large b/l DVTs and indwelling IVC filter since 2013
Imaging showed large calcified L renal cyst with apparent 2cm solid component
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
- Relatively low suspicion for renal vein tumor thrombus as a cause of DVTs given decompressed appearance on CT, but enhanced image will better clarify
- MRI abdomen w/wo contrast to eval
- Despite poor renal function, modern gadolinium agents have near-zero risk for causing NSF and would be appropriate to proceed in this situation
[2025-01-03] MEDS: HEPARIN 2800 UNITS IV (08:33)
[2025-01-03] MEDS: NICODERM TRANSDERMAL 21 MG TRANSDERM (08:34)
--- NOTE | 2025-01-03 08:36 | W.PN.ONC ---
Today's Communication / Plan
-
Continue to follow creatinine, will ultimately need MRI
Impression
Impression
Left sided Renal Mass concerning for Renal Cell Carcinoma
Extensive Bilateral Lower Leg DVTs
IVC filter placed 11 years ago
Thrombocytopenia
Plan
Plan
Extensive Bilateral Lower Leg DVTs
-History of IVC filter placed in [address] [facility]
-Peripheral vascular ultrasound (01/01/2025) showed occlusive bilateral extensive DVT from the groin to and including the calves.
-Patient currently on IV Heparin drip
-Continue to monitor PTT
-IR has been consulted by the primary team, Vascular Surgery consulted yesterday
-Will monitor
Left Renal Mass
-First noted on X-ray from 12/30/2024. CT Abdomen/Pelvis showed a rim calcified left renal mass measuring 9.6cm with a density of 17 Hounsfield. Additional view of the left renal lesion showed a solid unchanging rounded component in the anterior
nondependent portion of the mass, measuring approximately 2.2cm.
-No prior imaging studies available
-Concern for malignancy. Recommend MRI evaluation for further imaging provided he is able to have contrast given his creatinine (Will need to follow renal function, decreased today at 2.4 compared to 2.7 yesterday), and that his filters are
MRI-safe.
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
-Will monitor
Subjective/Objective
Subjective/Objective
Patient was doing well when I arrived. He has been in communication with his daughter who is a nurse, and will be bringing him breakfast this AM. He was seen by Urology earlier today. He has no new concerns or complaints at this time.
Vital Signs:
Vital Signs
Temp Pulse Resp BP Pulse Ox
97.9 F 74 14 127/64 99
01/03/25 07:47 01/03/25 07:47 01/03/25 07:47 01/03/25 07:47 01/03/25 07:47
Lab Results:
Laboratory Data
WBC 9.3 10^3/uL (4.8-10.8) 01/03/25 06:53
Hgb 14.1 g/dL (13.0-18.0) 01/03/25 06:53
Plt Count 99 10^3/uL (130-400) L 01/03/25 06:53
PT 13.8 Sec (11.4-14.6) 01/01/25 14:55
INR 1.03 01/01/25 14:55
APTT 68.3 Sec (23.4-35.0) H 01/03/25 06:53
eGFR 28.49 01/03/25 06:53
--- NOTE | 2025-01-03 10:13 | CM ---
Patient seen at bedside
per note Continue to follow creatinine, will ultimately need MRI
PLAN: anticipate home, when stable, CM to follow for needs
--- NOTE | 2025-01-03 10:16 | W.PN.HOSP.TC ---
Today's Communication/Plan
-
continue IV heparin until clear from urology and vascular perspectives to use oral AC. Appreciate input
Hope we can get MRI study, ok to use MRI dye with current renal function.
Assessment / Plan
Assessment / Plan
Physical Exam
General: Not in distress
HEENT: Normocephalic, Anicteric, Moist mucous membranes, PERRLA, [place] Conjunctivae and No Ptosis
Respiratory: Clear; No Wheezes, Rales or Rhonchi
Cardiac: S1/S2,
GI: Soft, Non Tender, Non Distended, Normal Bowel Sounds
Genito-urinary: No costovertebral tender
Musculoskeletal: No Clubbing, No Cyanosis. Mild edema in both legs.
Skin: Warm and Dry; No Rash
Neuro: AO x 3, No Motor Deficits, Nonfocal/grossly intact, Cranial Nerves Intact and No Sensory Deficits; No Slurred Speech, Facial Droop, Tremors or Sedated
Psych: Calm
A/P:
#Extensive bilateral lower leg DVTs
History of IVC filter placed 2014 [facility]
- IV heparin drip for now until
Monitor PTT
Bilateral lower venous Doppler:
Occlusive bilateral extensive DVT from the groin to and including bilat claves
Consult hematology
#THANG unclear if obstructive versus NSAID induced
Possible underlying CKD, unknown stage
# history renal cyst
Creat 2.7/bun 64
We do not know baseline. Per patient: No PCP. Patient lived in [facility] for years and moved back 8 months ago.
-Noncontrast CT abdomen pelvis
-Urinalysis negative except for plus for occult blood
- Stop naproxen, NSAIDs, aspirin
Appreciate nephrology help
# Left renal complex cyst. I spoke with Dr. Ford, seems encapsulated, likely chronic/ calcified, will need OP follow -- up and management.
Ordered MRI with and without contrast
#Acute leukocytosis reactive in setting of bilateral DVTs
Resolved.
#Acute thrombocytopenia
Plt 105
#Active smoker
1 pack a day x 40 years
Cessation advised
21 mg nicotine patch
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
He had subsequent right sided CEA performed also during 2013 at [facility]
He reports compliance to daily aspirin
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
#Hypertension hx
- Per patient used to be on medication is no longer on
- BP is stable
#Depression
Mood is pleasant
Total time spent to see the patient, examine the patient, review data lab result, discuss treatment plan with patient, nursing staff around 55 minutes
Anticipated Discharge: > 48 hours
Subjective/Interval History
-
Date of Service: January 03, 2025
No chest pain
No sob
No fevers
Objective Data
-
Labs:
Laboratory Results
01/03/25 01/03/25
06:53 14:30
WBC 9.3
Hgb 14.1
Hct 43.3
Plt Count 99 L
APTT 68.3 H Pending
Sodium 137
Potassium 4.4
Chloride 109 H
Carbon Dioxide 23
BUN 60 H
Creatinine 2.4 H
Glucose 88
Calcium 9.0
Total Bilirubin 0.6
AST 17
ALT 13
Alkaline Phosphatase 90
Vital Signs:
Vital Signs
Temp Pulse Resp BP Pulse Ox
97.9 F 74 14 127/64 99
01/03/25 07:47 01/03/25 07:47 01/03/25 07:47 01/03/25 07:47 01/03/25 07:47
I&O
01/02/25 01/03/25 01/04/25
06:59 06:59 06:59
Intake Total 480 / 480 1919 / 1919
Output Total 500 / 500 900 / 900
Balance -20 / -20 1020 / 1020
[2025-01-03 11:08] VITALS: BP 142/90
--- NOTE | 2025-01-03 13:31 | W.PN.NEPH.PH ---
Today's Communication / Plan
-
Maintain IV fluids
Follow BMP
Follow-up MRI
Assessment/Plan
-
IMP:
Extensive bilateral lower leg DVTs unclear if provoked by IVC filter x 11 years-2013
History of IVC filter placed 2013 [facility]
THANG vs CKD
history left renal cyst/mass
leukocytosis
thrombocytopenia
Active smoker
Left carotid stenosis status post CEA 2013 with post hemorrhagic CVA then provoked PEs requiring IVC filter.
He had subsequent right sided CEA performed also during 2013 at [facility]
Hypertension hx-not on meds
Depression
h/o K stone
Plan:
A/w bilat leg swelling and pain-noted extensive bilat DVT
known h/o DVT, PE s/p IVC filter in 2013, no medical care since then
cr high at 2.7 on admit and down to 2.4, nonoliguric
suspect he has CKD based on history , was told not to take NSAIDs due to kidneys
UA with microhematuria and 2+alb, [address] and renal US noted with asymmetric kidney mostly with cyst on left and no hydro
For MRI of abdomen and pelvis to further evaluate renal lesion
Concern for possible underlying renal vein thrombosis, the patient is anticoagulated with unfractionated
follow bladder scan too
given low plt -check manual diff on CBC
avoid nephrotoxins including NSAIDs
Can continue gentle IVF and follow labs
BP stable with out meds
AC per primary on heparin gtt
d/w patient's daughter (ICU nurse) in detail
-
-
Date of Service: January 03, 2025
CC / HPI / ROS
-
Chief Complaint:
Acute kidney injury
History of Present Illness:
Creatinine down to 2.4
Hemodynamically stable
Remains on heparin drip re: DVT
Review of Systems:
No fever
Nonoliguric
Weight stable
Labs
-
Labs:
WBC 9.3 10^3/uL (4.8-10.8) 01/03/25 06:53
RBC 4.74 10^6/uL (4.70-6.10) 01/03/25 06:53
Hgb 14.1 g/dL (13.0-18.0) 01/03/25 06:53
Hct 43.3 % (39.0-52.0) 01/03/25 06:53
Plt Count 99 10^3/uL (130-400) L 01/03/25 06:53
Sodium 137 mmol/L (135-145) 01/03/25 06:53
Potassium 4.4 mmol/L (3.5-5.1) 01/03/25 06:53
Chloride 109 mmol/L (98-107) H 01/03/25 06:53
Carbon Dioxide 23 mmol/L (22-30) 01/03/25 06:53
BUN 60 mg/dl (9-20) H 01/03/25 06:53
Creatinine 2.4 mg/dL (0.7-1.3) H 01/03/25 06:53
eGFR 28.49 01/03/25 06:53
Glucose 88 mg/dl (70-99) 01/03/25 06:53
Calcium 9.0 mg/dl (8.4-10.2) 01/03/25 06:53
Phosphorus 5.2 mg/dl (2.5-4.5) H 01/01/25 12:45
Albumin 3.7 g/dl (3.5-5.0) 01/03/25 06:53
Physical Exam
-
Vital Signs:
Vital Signs
Temp Pulse Resp BP Pulse Ox
97.8 F 78 14 142/90 99
01/03/25 11:08 01/03/25 11:08 01/03/25 11:08 01/03/25 11:08 01/03/25 11:08
Cardiovascular:: Regular rate and rhythm
Extremity Edema:: +1: Bilateral:
Chao Catheter: No
[2025-01-03] MEDS: NICODERM TRANSDERMAL 14 MG TRANSDERM (14:38)
[2025-01-03 14:40] LABS: APTT 53.9 Sec (23.4-35.0)
[2025-01-03] MEDS: HEPARIN 25000 UNITS/250 ML IV (14:41)
[2025-01-03] MEDS: HEPARIN 5600 UNITS IV (14:49)
[2025-01-03 15:00] VITALS: BP 125/64
[2025-01-03] MEDS: TYLENOL 650 MG PO (19:16)
[2025-01-03 19:30] VITALS: BP 152/83
[2025-01-03] MEDS: BENADRYL 25 MG PO (20:48)
[2025-01-03 21:07] LABS: APTT 178.4 Sec (23.4-35.0)
[2025-01-03 23:47] VITALS: BP 153/81
[2025-01-04 03:31] VITALS: BP 133/76
[2025-01-04 04:51] LABS: Hematocrit 42.7 % (39.0-52.0); Hemoglobin 13.9 g/dL (13.0-18.0); Mean Corp Hgb Conc. 32.6 g/dL (33.0-37.0); Mean Corpuscular Volume 90.5 fL (80.0-94.0); Platelet Count 116 10^3/uL (130-400); Red Cell Dist. Width 13.7 % (11.5-14.5)
[2025-01-04 04:54] LABS: APTT 103.0 Sec (23.4-35.0)
[2025-01-04 05:03] LABS: ALT (SGPT) 18 U/L (0-50); AST (SGOT) 22 U/L (17-59); Albumin 3.6 g/dl (3.5-5.0); Alkaline Phosphatase 87 U/L (38-126); Blood Urea Nitrogen 58 mg/dl (9-20); Calcium 9.2 mg/dl (8.4-10.2); Carbon Dioxide 22 mmol/L (22-30); Chloride 111 mmol/L (98-107); Estimated Creatinine Clearance 30 ml/min; Glucose 102 mg/dl (70-99); Potassium 4.5 mmol/L (3.5-5.1); Sodium 137 mmol/L (135-145); Total Protein 6.1 g/dl (6.3-8.2); eGFR 31.63
[2025-01-04 06:00] VITALS: BMI 25.6
[2025-01-04 06:38] LABS: Absolute Neutrophils -Man Diff 4.8 10^3/uL (1.4-6.5); Platelets Checked Yes
[2025-01-04 06:39] LABS: Anisocytosis 1+; Normal RBC Morphology No; Total Cells Counted 100
[2025-01-04 07:00] VITALS: BP 166/78
--- NOTE | 2025-01-04 07:59 | W.PN.ONC ---
Today's Communication / Plan
-
Plan to transition to oral Eliquis today
Discharge planning per primary care team
Patient will need outpatient MRI follow up in 6 months
Impression
Impression
Left sided Renal Mass Initially concerning for Renal Cell Carcinoma
Extensive Bilateral Lower Leg DVTs
IVC filter placed 11 years ago
Thrombocytopenia
Plan
Plan
Extensive Bilateral Lower Leg DVTs
-History of IVC filter placed in 2013 at [facility]
-Peripheral vascular ultrasound (01/01/2025) showed occlusive bilateral extensive DVT from the groin to and including the calves.
-Patient currently on IV Heparin drip, plan to switch to oral Eliquis today by primary care team
-Continue to monitor PTT while hospitalized
-Defer to outpatient primary care physician for identification of risk factors associated with development of DVTs and need for mcc anticoagulation in the setting of sedentary lifestyle.
-Will monitor
Left Renal Cyst
-First noted on X-ray from 12/30/2024. CT Abdomen/Pelvis showed a rim calcified left renal mass measuring 9.6cm with a density of 17 Hounsfield. Additional view of the left renal lesion showed a solid unchanging rounded component in the anterior
nondependent portion of the mass, measuring approximately 2.2cm.
-No prior imaging studies available
-Per MRI on 01/03/2025: Dominant complex left renal cyst without overt postcontrast enhancement, highly suggestive of benignity. As a conservative measure, recommend follow-up MRI in 6 months.
-Stressed to both patient and daughter the need to follow up outpatient with an MRI in 6 months to monitor.
-Will monitor
Subjective/Objective
Subjective/Objective
Patient was doing well when I arrived. He had no concerns at this time, and was excited to go home and sleep in his own bed once he transitioned to oral anticoagulants. He stated he wanted to use Eliquis so he would not have to follow up with
frequent outpatient labs, and promised compliance with his new medication regime. His daughter also joined him in the room, and with his permission we reviewed the results of his MRI together. His daughter does report he frequently spends all day in
bed at home.
Vital Signs:
Vital Signs
Temp Pulse Resp BP Pulse Ox
97.4 F 71 16 133/76 97
01/04/25 03:31 01/04/25 03:31 01/04/25 03:31 01/04/25 03:31 01/04/25 03:31
Lab Results:
Laboratory Data
WBC 9.3 10^3/uL (4.8-10.8) 01/04/25 04:20
Hgb 13.9 g/dL (13.0-18.0) 01/04/25 04:20
Plt Count 116 10^3/uL (130-400) L 01/04/25 04:20
PT 13.8 Sec (11.4-14.6) 01/01/25 14:55
INR 1.03 01/01/25 14:55
APTT 103.0 Sec (23.4-35.0) H 01/04/25 04:20
eGFR 31.63 01/04/25 04:20
[2025-01-04] MEDS: NORVASC 5 MG PO (08:33)
[2025-01-04] MEDS: NICODERM TRANSDERMAL 14 MG TRANSDERM (08:33)
[2025-01-04 08:44] LABS: Nucleated Red Blood Cells % 0 % (-)
[2025-01-04] MEDS: ELIQUIS 10 MG PO (09:19)
--- NOTE | 2025-01-04 09:35 | W.PN.HOSP.TC ---
Today's Communication/Plan
-
Discharge
Assessment / Plan
Assessment / Plan
Physical Exam
General: Not in distress
HEENT: Normocephalic, Anicteric, Moist mucous membranes, PERRLA, [place] Conjunctivae and No Ptosis
Respiratory: Clear; No Wheezes, Rales or Rhonchi
Cardiac: S1/S2,
GI: Soft, Non Tender, Non Distended, Normal Bowel Sounds
Genito-urinary: No costovertebral tender
Musculoskeletal: No Clubbing, No Cyanosis. Mild edema in both legs.
Skin: Warm and Dry; No Rash
Neuro: AO x 3, No Motor Deficits, Nonfocal/grossly intact, Cranial Nerves Intact and No Sensory Deficits; No Slurred Speech, Facial Droop, Tremors or Sedated
Psych: Calm
A/P:
#Extensive bilateral lower leg DVTs
History of IVC filter placed 2014 [facility]
- s/p IV heparin drip , d/w vascular & urology, ok to transition to oral AC
I had long discussion with patient regarding choices of oral anticoagulation whether Coumadin or not Coumadin. He chose Eliquis. He was counseled regarding potential side effects of anticoagulation including spontaneous bleeding, he verbalized
understanding
He was advised to follow-up with hematology in outpatient setting
Bilateral lower venous Doppler:
Occlusive bilateral extensive DVT from the groin to and including bilat claves
#THANG unclear if obstructive versus NSAID induced
Possible underlying CKD, unknown stage
# history renal cyst
Creat 2.7/bun 64
Creatinine 2.2 on discharge suspect CKD stage IIIb-IV
We do not know baseline. Per patient: No PCP. Patient lived in [facility] for years and moved back 8 months ago.
-Noncontrast CT abdomen pelvis
-Urinalysis negative except for plus for occult blood
- Stopped naproxen, NSAIDs, aspirin no retention on bladder scan..
Appreciate nephrology help
# Left renal complex cyst. I spoke with Dr. Ford, seems encapsulated, likely chronic/ calcified, will need OP follow -- up and management.
S/p MRI with and without contrast that showed complex left renal cyst without overt postcontrast enhancement, highly suggestive of benignity. As a conservative measure, recommend follow-up MRI in 6 months. Patient was advised to follow-up with
urology.
#Acute leukocytosis reactive in setting of bilateral DVTs
Resolved.
#Acute thrombocytopenia
Plt 105
#Active smoker
1 pack a day x 40 years
Cessation advised, he verbalized understanding
21 mg nicotine patch
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
He had subsequent right sided CEA performed also during 2013 at [facility]
He reports compliance to daily aspirin.currently on Eliquis
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 Gait is normal, patient is independent
#Hypertension hx
- Per patient used to be on medication is no longer on
- BP is stable
#Depression
Mood is pleasant
Total discharge time spent to see the patient, examine the patient, review data lab result, discuss discharge plan with patient, his daughter who is a nurse, case management assistant, nursing staff around 65 minutes
Anticipated Discharge: Today
Subjective/Interval History
-
Date of Service: January 04, 2025
no complaints
Objective Data
-
Labs:
Laboratory Results
01/04/25 01/04/25
04:20 11:00
WBC 9.3
Hgb 13.9
Hct 42.7
Plt Count 116 L
APTT 103.0 H Pending
Sodium 137
Potassium 4.5
Chloride 111 H
Carbon Dioxide 22
BUN 58 H
Creatinine 2.2 H
Glucose 102 H
Calcium 9.2
Total Bilirubin 0.5
AST 22
ALT 18
Alkaline Phosphatase 87
Vital Signs:
Vital Signs
Temp Pulse Resp BP Pulse Ox
97.5 F 69 17 166/78 98
01/04/25 07:00 01/04/25 07:00 01/04/25 07:00 01/04/25 07:00 01/04/25 07:00
I&O
01/03/25 01/04/25 01/05/25
06:59 06:59 06:59
Intake Total 1920 / 1920 1680 / 1680
Output Total 900 / 900 600 / 600
Balance 1020 / 1020 1080 / 1080
--- NOTE | 2025-01-04 10:17 | CM ---
patient discharged today
IMM explained & signed. In chart
CM consult completed for eliquis pricing
10mg BID x 7 days, then 5mg BID
called [facility] pharmacy and spoke with pharmacist Flavia who stated if script is written for Eliquis starter pack cost will be $175.00
Coupon also given to patient
tt hospitalist
PLAN: Home, no needs
daughter to transport
[2025-01-04 10:50] VITALS: BP 135/71
[2025-01-05 01:46] LABS: Serine Protease-3, IgG 1 AU/mL (0-19)
--- NOTE | 2025-01-05 06:44 | W.DCSUMMARY ---
Discharge Summary
Discharge Data
Date of Admission: 01/01/25
Date of Discharge: 01/04/25
-
Pending Results: No
Hospital Course
69 years old male presented with lower extremity pain. Patient was found to have renal insufficiency. Patient did not have a primary care doctor. Ultrasound showed bilateral lower extremity deep venous thrombosis. Hematology and vascular surgery
were consulted. Could not do CT venogram because of renal insufficiency. Patient had history of IVC filter placement for more than 10 years. Patient reported that he did not go back to have it removed. He was started on anticoagulation with
heparin. He was found to have left renal complex cyst. Subsequent MRI with and without contrast showed complex cyst with recommendation to follow in future. Urology evaluated the patient recommended outpatient follow-up. Kidney function remained
stable with creatinine around 2.2. Patient was counseled regarding the options for oral systemic anticoagulation. He chose to Eliquis. He verbalized understanding potential side effects of systemic anticoagulation. Discharge instructions
discussed with patient and his daughter. He remained hemodynamically stable. Patient was given information to follow-up with outpatient specialist including urology, vascular, hematology and nephrology. Patient was able to ambulate independently.
Patient was discharged home in a stable condition with home health services.
Discharge Plan
-
Patient Disposition: Home with Home Care
Discharge Diagnosis/Procedures: -Extensive bilateral lower leg deep venous thrombosis, you are given intravenous heparin, you were started on Eliquis. Eliquis is a blood thinner with the risk of bleeding. Avoid falls. Report to ER if you fall and
hit your head even with no symptoms.
-Suspect underlying chronic kidney disease, possibly stage IIIb. He will need to follow-up with tonger and avoid nonsteroidal anti-inflammatory drugs.
-Peripheral arterial disease. Follow-up with vascular surgery
-Left renal complex cyst. Follow-up with urology in outpatient setting.
- Tobacco abuse, avoid smoking. You are given nicotine patch.
- Newly diagnosed primary hypertension. You are started amlodipine. Amlodipine is calcium channel bhaskar and can cause hypotension, peripheral edema.
Diet: Low Fat and Low Sodium
Referrals:
Ralf Barber DO [Active, Hematology / Oncology] - in one month
Silver Britt DO [Active, Nephrology] - in one month
Sd Chao III, MD [Active, Vascular Surgery] - in one month
NONE,* [Family Provider, Internal Medicine]
Logan Ford MD [Active, Urology] - in two to four weeks
Prescriptions:
New
nicotine 14 mg/24 hr Patch 24 Hour
14 mg transdermal DAILY Qty: 28 0RF
amlodipine 5 mg Tablet
5 mg PO DAILY Qty: 30 0RF
Eliquis DVT-PE Treat 30D Start 5 mg (74 tabs) tablets,dose pack
5 mg PO ONCE Qty: 74 0RF
Discontinued
naproxen 500 mg tablet
500 mg PO BID PRN (Reason: Pain) Qty: 20 0RF
aspirin 81 mg Tablet
81 mg PO DAILY
methylprednisolone [Medrol (Robby)] 4 mg tablets,dose pack
4 mg PO DAILY
Patient Comments:
took 1t@breakfast, 1t@lunch, 2t@dinner on 12/31/24
Rx Instructions:
As directed
Discharge Orders:
Discharge Patient (As Directed); Ordered 01/04/25
Ordered By: Karolina Portillo
Discharge Date and Time
Discharge Date/Time: 01/04/25 11:18
Print Language: [id number]
[2025-01-05 07:57] LABS: ANA, IgG Reflex to HEp-2 None Detected (None Detected)
== END 2025-01-04 11:18 | disposition home or self-care (01) | DRG 300 ==
LOC: 3 WEST ACU 15:59
PROVIDERS: Clinical Nurse Specialist Family Health; ADMITTING PHYSICIAN Internal Medicine; ATTENDING PHYSICIAN Internal Medicine; CONSULT PHYSICIAN Surgery Vascular Surgery; CONSULT PHYSICIAN Urology; EMERGENCY PHYSICIAN Emergency Medicine; OTHER PHYSICIAN Internal Medicine; OTHER PHYSICIAN Internal Medicine Hematology & Oncology
DX: I82.413 Acute embolism and thrombosis of femoral vein, bilateral (principal); C64.2 Malignant neoplasm of left kidney, except renal pelvis; N17.9 Acute kidney failure, unspecified; I82.433 Acute embolism and thrombosis of popliteal vein, bilateral; I82.443 Acute embolism and thrombosis of tibial vein, bilateral; F32.A Depression, unspecified; F17.210 Nicotine dependence, cigarettes, uncomplicated; D72.829 Elevated white blood cell count, unspecified; D69.6 Thrombocytopenia, unspecified; N18.32 Chronic kidney disease, stage 3b; I12.9 Hypertensive chronic kidney disease with stage 1 through stage 4 chronic kidney disease, or unspecified chronic kidney disease; I73.9 Peripheral vascular disease, unspecified; M47.816 Spondylosis without myelopathy or radiculopathy, lumbar region; I69.334 Monoplegia of upper limb following cerebral infarction affecting left non-dominant side; Z79.82 Long term (current) use of aspirin; Z86.711 Personal history of pulmonary embolism; Z79.01 Long term (current) use of anticoagulants; Z95.828 Presence of other vascular implants and grafts
CPT/HCPCS: 51798; 74176; 74183; 76775; 80048; 80053; 80061; 81003; 81015; 81099; 82570; 83516; 83735; 84100; 84156; 85025; 85027; 85610; 85730; 86038; 86160; 86803; 93970; 96365; 96366; 99285; A9585